=== PATIENT | female | born 1970 | race Caucasian/White ===

== ENCOUNTER 2021-02-05 14:45 | Emergency (ER) | payer BC, SELFPAY ==
[2021-02-05 14:45] VITALS: BP 171/81; PULSE 96; RESP 18; TEMP 37.3; O2SAT 99; BMI 27.6
[2021-02-05 14:55] VITALS: BP 171/81; PULSE 96; RESP 18; TEMP 37.3; O2SAT 99; BMI 27.6
--- NOTE | 2021-02-05 15:14 | HMH.EDUTC ---
[facility] [place] Disposition Clinical Impression: Dental abscess Disposition: Home, Self-Care Condition on Discharge: Good Instructions: Tooth Decay, Tooth Abscess, DI for Tooth Decay, DI for Dental Pain Additional Instructions: Use dental balls as directed *Take medication as prescribed to help with dental infection Warm salt water gargles may help with throat irritation Self-care: Rinse your mouth every 2 hours with salt water. This will help keep the area clean. Gently brush your teeth twice a day with a soft tooth brush. This will help keep the area clean. Eat soft foods as directed. Soft foods may cause less pain. Examples include applesauce, yogurt, and cooked pasta. Apply a warm compress to your tooth or gum. Use a cotton ball or gauze soaked in warm water. Remove the compress in 10 minutes or when it becomes cool. Repeat 3 times a day. Tylenol as prescribed for pain every 6hrs Call tomorrow and make appointment with Dentist it may take you a week or so to get in Return if needed Straight to ER if any life threatening symptoms Prescriptions: Acetaminophen 1,000 mg PO Q6HP PRN #20 tab PRN Reason: Moderate Pain Transmission Status: Pending to [id number] clindamycin HCL [Cleocin HCl] 300 mg PO Q6H 7 Days #28 cap Transmission Status: Pending to [id number] Referrals: Gaby Mercado DO [Primary Care Provider] - As needed Yuniel Espinal [Referring] - As needed Time of Disposition: 15:54 Medical Decision Making - Erick Inquiry Pt receiving controlled substance: No Erick was queried for this patient: No Vital Signs: 02/05/21 14:45 02/05/21 14:55 Temperature 99.1 F 99.1 F Temperature Source Oral Oral Pulse Rate [Right] 96 H 96 H Respiratory Rate 18 18 Blood Pressure [Right Arm] 171/81 H 171/81 H Blood Pressure Mean [Right Arm] 111 111 Blood Pressure Source [Right Arm] Automatic Cuff Blood Pressure Position [Right Arm] Sitting 02 Sat by Pulse Oximetry 99 99 Oxygen Delivery Method Room Air Room Air - Lab Data Lab results reviewed: Yes: I reviewed the patient's lab results. Lab Results 02/05/21 15:26: Strep Scn Rapid Clinic Negative Orders (Tests/Meds): ED MEDICATIONS Discontinued Medications Generic Name Dose Route Start Last Admin Trade Name Freq PRN Reason Stop Dose Admin Benzocaine/Butamben/Tetracaine HCl 1 gm 02/05/21 15:34 02/05/21 15:36 Tetracaine/Benzocaine/Butamben 56 Gm [place] TP 02/05/21 15:35 1 gm ONCE ONE Administration Lidocaine HCl 15 ml 02/05/21 15:34 02/05/21 15:36 Lidocaine 2% Viscous Rohini 15ml Udc PO 02/05/21 15:35 15 ml ONCE ONE Administration ORDERS Category Date Time Status Strep Screen Confirmation Stat Micro 02/05/21 15:26 Received [facility] [place] HPI - General Stated complaint: mouth pain, dental Time Seen by Provider: 02/05/21 15:14 Mode of Arrival: Ambulatory Source of Information: Patient Limitations: No Limitations Description of Symptoms (Recalled from Triage Doc. by RN): PATIENT C/O DENTAL PAIN FOR THE LAST SEVERAL MONTHS BUT WORSE IN THE LAST WEEK. PT DOES NOT APPEAR TO HAVE ANY OBVIOUS SWELLING UPON ASSESSMENT. PT REPORTS SHE HAS A SORE THROAT WELL. PT DENIES ANY RECENT DFENTAL WORK. HEENT Symptoms (Recalled from RN notes): Yes Resp Symptoms (Recalled from RN notes): No Skin Symptoms (Recalled from RN notes): No MS Symptoms (Recalled from RN notes): No Functional Status (Recalled from RN notes): WNL - History of Present Illness Provider Complaint: Patient states that she has several teeth that is broken off at the gumline on both top and bottom gums States that she has been having problems on and off for several months with infection and states that today she could taste it and her throat was feeling sore and she was worried that they was abscessed again States that she noticed her face on her right lower jaw area was swollen and hurt to touch States that she has some swelling in gum line and pain in her tooth travis
[2021-02-05 15:37] LABS: UTC Strep Screen (Rapid) Negative (Negative)
[2021-02-05 15:56] VITALS: BP 171/81; PULSE 96; RESP 18; TEMP 37.3; O2SAT 99
== END 2021-02-05 16:00 | disposition home or self-care (01) ==
LOC: ER 14:58 → UTC 15:05
PROVIDERS: Emergency Provider Nurse Practitioner; PCP Family Medicine
DX: K04.7 Periapical abscess without sinus (principal); F17.210 Nicotine dependence, cigarettes, uncomplicated
CPT/HCPCS: 87880; 99202; G0463

== ENCOUNTER 2021-08-01 20:42 | Emergency (ER) | payer BC, SELFPAY ==
--- NOTE | 2021-08-01 20:55 | XR_ITS ---
PROCEDURE INFORMATION: Exam: XR Right Hip Exam date and time: 08/01/2021 8:55 PM Age: 51 years old Clinical indication: Injury or trauma; Fall; Blunt trauma (contusions or hematomas); Right; Hip TECHNIQUE: Imaging protocol: XR Right hip. Views: 2 or 3 views hip with pelvis when performed. COMPARISON: No relevant prior studies available. FINDINGS: Bones/joints: Unremarkable. No acute fracture. Degenerative changes in the pubic symphysis with mild sclerotic changes. Mild sclerotic changes in bilateral SI joints. Soft tissues: Unremarkable. IMPRESSION: No acute findings.
[2021-08-01 21:22] VITALS: BP 188/98; PULSE 79; RESP 18; TEMP 37; O2SAT 95; BMI 30.5
[2021-08-01 22:04] VITALS: BP 188/98; PULSE 79; RESP 18; TEMP 37; O2SAT 95
--- NOTE | 2021-08-01 22:06 | HMH.EDUTC ---
[facility] [place] Disposition Clinical Impression: Buttock pain Disposition: Home, Self-Care Condition on Discharge: Good Instructions: DI for Chronic Pain -- Adult, DI for Hip Pain, Help for Hip Pain, Ibuprofen, Acetaminophen (Alternative Therapy) Additional Instructions: *Ibuprofen jannet 6 hours with meal as needed for pain/inflammation *Remember you had a Toradol shot in the clinic today, which is similar to Motrin *Not additional anti-inflammatory like motrin, aleve, advil with the above amount of ibuprofen. You can still take Tylenol every 4 hours as needed if you need something else for pain *Ice 20 minutes every 2 hours for the first 48 hours after the initial injury followed by moist heat every 20 minutes 3-4 times a day to affected area *Keep this area active, no movement leads to more stiffness, However take it easy and avoid heavy lifting pushing or pulling *Follow up with you family doctor if no improvement for further treatment Follow up with Family Doctor if no improvement or any worsening of symptoms Referrals: Gaby Mercado, [Primary Care Provider] - As needed Time of Disposition: 22:16 Medical Decision Making - Erick Inquiry Pt receiving controlled substance: No Erick was queried for this patient: No Vital Signs: 08/01/21 21:22 08/01/21 22:04 Temperature 98.6 F 98.6 F Temperature Source Oral Pulse Rate 79 Pulse Rate [Left Radial] 79 Respiratory Rate 18 18 Blood Pressure 188/98 H Blood Pressure [Right Arm] 188/98 H Blood Pressure Mean [Right Arm] 128 Blood Pressure Source Automatic Cuff Blood Pressure Source [Right Arm] Automatic Cuff Blood Pressure Position Sitting Blood Pressure Position [Right Arm] Sitting 02 Sat by Pulse Oximetry 95 Oxygen Delivery Method Room Air - Radiology Data #1 Image(s): Hip IMPRESSION: No acute findings. Medical Decision Narrative: Patient states that she has taken Toradol in the past without reactions or complications [facility] [place] HPI - General Stated complaint: AO 07/29 injured back and neck Time Seen by Provider: 08/01/21 22:06 Mode of Arrival: Ambulatory Source of Information: Patient Limitations: No Limitations Description of Symptoms (Recalled from Triage Doc. by RN): fell off a ramp, c/o right hip pain HEENT Symptoms (Recalled from RN notes): No Resp Symptoms (Recalled from RN notes): No Skin Symptoms (Recalled from RN notes): No MS Symptoms (Recalled from RN notes): Yes Functional Status (Recalled from RN notes): na - History of Present Illness Provider Complaint: Patient states that was helping a friend and was walking down a ramp and she slipped and fell and landed on her right buttock area States that ever since she has been sore and hurts when she sits on that side and moves certain ways States that she feels like she may have brusied her buttock area but wanted to get a xray to make sure that she didnt break something - Related Data Home Medications Medication Instructions Recorded Confirmed Dextroamphetamine/Amphetamine 10 mg PO DAILY 02/05/21 02/05/21 [Dextroamp-Amphetamin 10 mg Tab] Fexofenadine HCl [Nathaly 180 mg PO DAILY 02/05/21 02/05/21 Allergy] Gabapentin 600 mg PO BID 02/05/21 02/05/21 PARoxetine HCL [Paxil] 20 mg PO DAILY 02/05/21 02/05/21 Pramipexole Di-HCl [Mirapex 1mg 1 mg PO DAILY 02/05/21 02/05/21 tablet] lisinopriL [Lisinopril] 20 mg PO DAILY 02/05/21 02/05/21 Previous Rx's Medication Instructions Recorded Acetaminophen 1,000 mg PO Q6HP PRN #20 tab 02/05/21 clindamycin HCL [Cleocin HCl] 300 mg PO Q6H 7 Days #28 cap 02/05/21 Allergies Allergy/AdvReac Type Severity Reaction Status Date / Time No Known Allergies Allergy Verified 02/02/19 19:00 - Worker's Comp Is this a Worker's Comp case?: No [facility] History - Hepatitis A Screen Drug use history?: No High risk sexual behaviors?: No History of sexually transmitted infection?: No Currently employed?: No Childcare worker?: No
== END 2021-08-01 22:18 | disposition home or self-care (01) ==
PROVIDERS: Emergency Provider Nurse Practitioner; PCP Family Medicine
DX: M54.41 Lumbago with sciatica, right side (principal); M79.18 Myalgia, other site; F17.210 Nicotine dependence, cigarettes, uncomplicated
CPT/HCPCS: 73502; 96372; 99202; G0463